=== PATIENT | female | born 1945 | race Hispanic/Latino ===

== ENCOUNTER 2024-09-14 06:26 | Observation (INO) | payer OTHER ==
[2024-09-12 10:53] VITALS: BP 154/78; PULSE 75; RESP 17; TEMP 97.3
[2024-09-12 11:11] LABS: CREATININE 0.9 mg/dL (0.5-1.0); GLOMERULAR FILTR. RATE CALC 65 mL/min (>90); GLUCOSE,RANDOM 116 mg/dL (70-105); SODIUM SERUM 140 mmol/L (136-145); UREA NITROGEN, BLOOD 14 mg/dL (7-18)
[2024-09-12 11:13] LABS: IMMATURE GRANULOCYTE ABSOLUTE 0.02 K/uL (0-1); NUCLEATED RED BLOOD CELLS 0.0 % (0.0-0.19); PLATELET COUNT (AUTO) 201 K/uL (130-400); RED BLOOD CELL COUNT(AUTO) 4.76 MIL/uL (4.00-5.50); RED CELL DISTRIBUTION WIDTH 16.5 % (11.0-15.5); WHITE BLOOD COUNT (AUTO) 5.2 K/uL (4.8-10.8)
[2024-09-12 11:23] LABS: INR 1.06 (0.85-1.15)
[2024-09-14] VITALS (28 sets, daily range): BP systolic 115–140; BP diastolic 52–79; PULSE 68–90; RESP 14–19; TEMP 97.3–97.6; O2SAT 95–97
[~2024-09-14] VITALS: Ht 154.9 cm; Wt 77.2 kg
[~2024-09-14 06:26] MED LIST: ASPI-1197 PO; CARV3.12 PO; ROSU5TAB51 PO; SACU1TAB4 PO
[2024-09-14] MEDS ORDERED: LIDOCAINE HCL MPF 1% 5ML VIAL ONE (07:32)
[2024-09-14] MEDS ORDERED: GLYCOPYRROLATE 0.2 MG/ML 5 ML VIAL ONE (07:40)
[2024-09-14] MEDS ORDERED: MIDAZOLAM HCL 1 MG/ML 2ML VIAL ONE (07:40)
[2024-09-14] MEDS ORDERED: NEOSTIGMINE METHYLSULFATE 1MG/ML IV ONE (07:40)
[2024-09-14] MEDS: LACTATED RINGERS 1000ML 1,000 ML IV ONE (07:55)
[2024-09-14] MEDS: TRANEXAMIC ACID 1000MG/10ML ONE (09:10)
[2024-09-14] MEDS: TRANEXAMIC ACID 1000MG/10ML IV ONE ×2 (10:47)
[2024-09-14] MEDS ORDERED: HYDROcodone/APAP 5/325 1 TAB TABLET PO PRN (11:00)
[2024-09-14] MEDS ORDERED: CALCIUM CARB 500MG PO PRN (11:00)
[2024-09-14] MEDS ORDERED: CYCLOBENZAPRINE HCL 10 MG TABLET PO PRN (11:00)
[2024-09-14] MEDS ORDERED: PoTASSium chl 10% ELIXIR 20MEQ 20 MEQ/15 ML UDCUP PO PRN (11:00)
[2024-09-14] MEDS ORDERED: PoTASSium chloRIDE 20MEQ ER 20 MEQ ERTAB PO PRN (11:00)
[2024-09-14] MEDS ORDERED: FERROUS FUMARATE 324 MG TABLET PO PRN (11:00)
--- NOTE | 2024-09-14 11:06 | OP ---
Operative Note: DATE OF PROCEDURE: 09/14/24 PREOPERATIVE DIAGNOSIS: Right knee osteoarthritis. POSTOPERATIVE DIAGNOSIS: Right knee osteoarthritis. PROCEDURE PERFORMED: Right knee total knee arthroplasty. SURGEON: Beverley Hair MD FISHER CRAB: Beatriz Daniel and Nehemiah Hale. ANESTHESIA: General with adductor canal block. ANESTHESIA: JIM Mauro. ESTIMATED BLOOD LOSS: 50cc. COMPLICATIONS: None. DRAINS: None. SPECIMENS REMOVED: resected bone. Not sent to pathology. IMPLANTS: Lob[employer]hew Journey II BCS size 4 Oxinium femur, size 3 tibial base plate, 32 mm patella, 12 mm polyethylene STATEMENT OF MEDICAL NECESSITY: The patient is a 79-year-old female who suffers from right knee osteoarthritis failing conservative management. After discussion of the risks, benefits, and alternatives with the patient, they voluntarily agreed to undergo the aforementioned procedure. DESCRIPTION OF PROCEDURE: Patient was properly identified in the preoperative holding area. Surgical site marking was verified and surgery consent reviewed. The patient was then taken to the operating room and placed in supine position on the OR table. After induction of general anesthesia, preoperative antibiotics were given, all bony prominences were well-padded, and a well padded tourniquet was applied but not inflated at this time. The right lower extremity was then prepped and draped in usual sterile fashion. Surgical time out was done verifying correct surgery, side, site, and location to be performed. We then began the procedure by exsanguinating the limb using an Esmarch and inflating the tourniquet to 350 mmHg. At this point, we made an anterior midline incision using a 10 blade, coming down sharply the level of the fascia. Skin flaps were elevated medially and laterally. We then obtained a clean 10 blade and performed a standard medial parapatellar arthrotomy. We excised the infrapatellar fat pad. We performed our soft tissue releases off of the tibia. We transected the ACL and removed the anterior portion of the medial & lateral meniscus. We then brought the knee into hyperflexion with the patella everted. We used our entry reamer to enter the femoral canal. We then placed our intramedullary cutting guide for our distal femoral cutting block. We then performed our distal femoral osteotomy ensuring appropriate rotation and removed the bony wafer. We then removed these pins and block and then used jig 2 to size the distal femur with the after mentioned size found. We then placed our 5-in-1 cutting block in 3 degrees of external rotation and took our 5 cuts ensuring to protect the patellar tendon and the collateral ligaments. We then removed the cutting block and our bony fragments using a curved osteotome. We then placed our PCL retractor subluxating the tibia anteriorly. Using an extra medullary tibial cutting guide, we hung the block for our proximal tibial cut taking 2 mm off the more diseased portion. Prior to pinning this block in place, we ensured appropriate varus/valgus alignment and posterior slope similar to the paimiut slope of the patient's knee. We then performed our proximal tibial osteotomy and removed the bony wafer using Bovie electrocautery to release any remaining soft tissue attachments. We then used our tibial sizing paddle and checked once more for varus & valgus alignment and found this to be appropriate. At this point, we pinned our tibial paddle in place. We then removed the PCL retractor and subluxated the tibia posteriorly while we placed our femoral trial component. We then finished preparing the notch with the reamer and box chisel. The notch portion of the trial femoral component was then placed. A posterior stabilized polyethylene, size 9 trial was placed. This was immediately increased up to a size 11 polyethylene due to laxity with varus and valgus stressing. The knee was then taken through range of motion and found to have stable full range of motion. We then placed a bump under the ankle and everted the patella to perform our freehand cut of the undersurface the patella. We then sized our patella and reamed to the lug holes for this. We placed our trial patellar component and begin to take the knee through range of motion. The patella had mild lateral tracking which improved after a small lateral release. At this point we began removing our trial components and punched the tibial keel prior to removing our tibial trial component. Final components were opened and cement was mixed on the back table while we injected local cocktail in the posterior capsule. We then thoroughly irrigated out the bone and dried the bony surfaces. We cemented our tibial component in place ensuring to remove excess cement and placed our trial polyethylene. We then cemented our femoral component in place once again taking time to ensure excess cement was removed leg was brought into full extension to help squeeze the excess cement from around the femoral component. We then brought the knee back in a flexion to remove this portion of the cement at this point we placed the ankle in a bump thoroughly irrigated off the patellar component and cemented our patellar component in standard fashion again removing excess cement. While we waited for the cement to cure, we thoroughly irrigated out the wound with normal saline. Once our cement had cured, we took the knee through a range of motion and found full and stable range of motion. We then elected to use the size 12 polyethylene and removed our trial polyethylene. We impacted our final polyethylene component in place in standard fashion and took the knee through a range of motion check once more. This was satisfactory so we began to repair the arthrotomy using #1 Vicryl in interrupted [id number] fashion. Subcutaneous tissue was repaired using 2-0 Vicryl. Running subcuticular 3-0 Monocryl stitch with Dermabond placed over this for the skin. We then applied a foam barrier dressing and a pressure dressing consisting of 4 x 4's fluffs and an Carlos Alberto wrap. The tourniquet was then deflated. Patient was awakened from anesthesia, and they were taken to the recovery room in stable condition. BEVERLEY HAIR MD Sep 14, 2024 11:06
--- NOTE | 2024-09-14 11:08 | DS ---
Discharge Summary Hospital Course Summary: The patient was admitted to the hospital postoperatively on 09/14/2024 after undergoing right total knee arthroplasty. They did well with routine postoperative pain control. They worked well with physical therapy. They developed some acute blood loss anemia but remained asymptomatic. The hospital course was otherwise uncomplicated. They were subsequently able to be discharged on postoperative day [] once discharge arrangements were made with [facility] facility. Client Relationship Executive(s): None Procedure(s): Right total knee arthroplasty, 09/14/2024 Assessment/Plan: ASSESSMENT: Status post right total knee arthroplasty Acute blood loss anemia PLAN: See discharge instructions Home Medications: Reported Medications Aspirin (Aspirin) 81 Mg Tab.chew, 81 MG PO AM, TAB.CHEW 09/12/24 Carvedilol (Carvedilol) 3.125 Mg Tablet, 3.125 MG PO BID, TAB 09/12/24 Sacubitril/Valsartan (Entresto 97 mg-103 mg Tablet) 97 Mg-103 Mg Tablet, 1 EACH PO BID, TAB 09/12/24 Rosuvastatin Calcium (Rosuvastatin Calcium) 5 Mg Tablet, 5 MG PO AM, TAB 09/12/24 VANDANA LUCERO MD Sep 14, 2024 11:08
--- NOTE | 2024-09-14 12:20 | HMCIMG ---
EXAM: CR right Knee, 2 View. CLINICAL HISTORY: S/P RT TKA SURGERY COMPARISON: None provided. FINDINGS: Cemented right total knee arthroplasty is in near anatomic alignment without evidence of a periprosthetic fracture. Knee joint effusion. Postsurgical changes about the right knee joint. IMPRESSION: 1. Cemented right total knee arthroplasty in near anatomic alignment without acute findings. Knee joint effusion noted. /[place]
[2024-09-14] MEDS: 0.9%NACL 1000ML 1,000 ML IV SCH (12:55)
--- NOTE | 2024-09-14 12:55 | NUR ---
REPORT RECEIVED FROM CHERYL MATA. PATIENT ARRIVED TO THE UNIT. NO SIGNS OF DISTRESS NOTED. POST OP VITALS INITIATED. SCDS PLACED ON THE PATIENT. ICE BAG APPLIED TO THE AFFECTED LEG. NO COMPLAINTS OF PAIN AT THIS TIME. WILL MONITOR PATIENT.
--- NOTE | 2024-09-14 15:00 | NUR ---
PATIENT'S DAUGHTER AT BEDSIDE. PATIENTS DAUGHTER STATED THAT THE PATIENT CANNOT HAVE NSAIDS DUE TO TAKING ENTRESTO. NO ALLERGY. PATIENT HAS SCHEDULED TORADOL. WILL NOTIFY PHYSICAN FOR FURTHER RECOMMENDATIONS.
--- NOTE | 2024-09-14 16:30 | NUR ---
Ortho Coordinator: Teaching regarding DVT and pneumonia prevention, pain expectation and pain management. Patient in bed. Daughter at bedside. B SCD sleeves in place and functioning. Incentive spirometer at bedside. Patient return demonstrated proper use of incentive spirometer and verbalized frequency of use. Pain strategy reviewed, medications reviewed. Patient instructed to perform pain self assessments and reminded pain medication must be requested. Patient return demonstrated proper foot flexion and extension exercises, rationale for performing reviewed. Set expectation for patient to shower tomorrow, rationale provided. No additional questions or concerns at this time.
[2024-09-14] MEDS: SACUBITRIL/VALSARTAN 1 EACH TABLET PO SCH (21:27)
[2024-09-14] MEDS: HYDROcodone/APAP 5/325 1 TAB TABLET PO PRN (21:29)
[2024-09-15] VITALS: BP 126/58; PULSE 75; RESP 20; TEMP 98.3
[2024-09-15 04:00] VITALS: BP 128/64; PULSE 78; RESP 18; TEMP 98
[2024-09-15 04:48] LABS: NUCLEATED RED BLOOD CELLS 0.0 % (0.0-0.19); PLATELET COUNT (AUTO) 150.0 K/uL (130-400); RED BLOOD CELL COUNT(AUTO) 3.8 MIL/uL (4.00-5.50); RED CELL DISTRIBUTION WIDTH 16.6 % (11.0-15.5); WHITE BLOOD COUNT (AUTO) 8.1 K/uL (4.8-10.8)
[2024-09-15 04:57] LABS: CREATININE 0.8 mg/dL (0.5-1.0); GLOMERULAR FILTR. RATE CALC 75.0 mL/min (>90); GLUCOSE,RANDOM 141.0 mg/dL (70-105); SODIUM SERUM 139.0 mmol/L (136-145); UREA NITROGEN, BLOOD 11.0 mg/dL (7-18)
[2024-09-15 08:00] VITALS: BP 87/46; PULSE 86; RESP 18; TEMP 98
--- NOTE | 2024-09-15 08:19 | PN ---
Ortho postop day one. This morning the patient is awake alert and oriented. She is seated out of the bed resting comfortably alternating extending and flexing of the extremity on a footstool. Daughter at bedside. There is ice present. The Carlos Alberto bandage has been removed. The dressing is intact. Gastrocnemius a soft nontender. Negative Homans. Vital signs have remained stable. Afebrile. Voiding on her own without difficulty and already passing gas but yet to have BM. Laboratory results reviewed. Noted to have a drop in hemoglobin and hematocrit as expected after TKA. We will continue to observe and treat per protocol. Reinforced incentive spirometry. SCD sleeves are present in the room but not currently on. Yesterday she ambulated about 20 ft with physical therapy. She is pending further physical therapy this morning. The anticipated discharge goal [facility] Assessment: Status post right TKA. Acute postoperative blood loss anemia Plan: Continue with Dr. Hair's TKA protocol and discharge planning. Acute postoperative blood loss anemia addressed with the protocol as necessary Vitals/Labs Vital Signs Date Time Temp Pulse Resp B/P (MAP) Pulse Ox O2 Delivery O2 Flow Rate FiO2 09/15/24 04:00 98.1 78 18 128/64 96 Room Air 09/14/24 21:30 0 21 Laboratory Tests 09/15/24 04:35 Medications Current Medications Cefazolin Sodium 2 gm STK-MED ONCE .ROUTE Last administered on 09/14/24 09:16; Start 09/14/24 at 07:17; Stop 09/14/24 at 07:17; Status DC Lactated Ringer's 1,000 ml @ As Directed STK-MED ONCE IV Last administered on 09/14/24at 07:55; Start 09/14/24 at 07:17; Stop 09/14/24 at 07:17; Status DC Ketorolac Tromethamine 30 mg STK-MED ONCE .ROUTE Last administered on 09/14/24at 10:12; Start 09/14/24 at 07:26; Stop 09/14/24 at 07:27; Status DC Ropivacaine 150 mg STK-MED ONCE .ROUTE Last administered on 09/14/24at 10:12; Start 09/14/24 at 07:27; Stop 09/14/24 at 07:27; Status DC Tranexamic Acid 1,000 mg STK-MED ONCE .ROUTE Last administered on 09/14/24at 09:10; Start 09/14/24 at 07:29; Stop 09/14/24 at 07:29; Status DC Lidocaine HCl 5 ml STK-MED ONCE .ROUTE; Start 09/14/24 at 07:32; Stop 09/14/24 at 07:32; Status DC Ondansetron HCl 4 mg STK-MED ONCE .ROUTE; Start 09/14/24 at 07:32; Stop 09/14/24 at 07:32; Status DC Propofol 200 mg STK-MED ONCE IV; Start 09/14/24 at 07:39; Stop 09/14/24 at 07:40; Status DC Dexamethasone Sodium Phosphate 10 mg STK-MED ONCE .ROUTE; Start 09/14/24 at 07:39; Stop 09/14/24 at 07:40; Status DC Glycopyrrolate 1 mg STK-MED ONCE .ROUTE; Start 09/14/24 at 07:40; Stop 09/14/24 at 07:40; Status DC Midazolam HCl 2 mg STK-MED ONCE .ROUTE; Start 09/14/24 at 07:40; Stop 09/14/24 at 07:40; Status DC Neostigmine Methylsulfate 10 mg STK-MED ONCE IV; Start 09/14/24 at 07:40; Stop 09/14/24 at 07:40; Status DC Rocuronium Maupin 50 mg STK-MED ONCE .ROUTE; Start 09/14/24 at 07:40; Stop 09/14/24 at 07:40; Status DC Fentanyl Citrate 100 mcg STK-MED ONCE .ROUTE; Start 09/14/24 at 07:40; Stop 09/14/24 at 07:40; Status DC Ondansetron HCl 4 mg STK-MED ONCE .ROUTE; Start 09/14/24 at 07:40; Stop 09/14/24 at 07:41; Status DC Ropivacaine 150 mg STK-MED ONCE .ROUTE; Start 09/14/24 at 09:07; Stop 09/14/24 at 09:07; Status DC Ephedrine Sulfate 50 mg STK-MED ONCE .ROUTE; Start 09/14/24 at 09:34; Stop 09/14/24 at 09:34; Status DC Tranexamic Acid 1,000 mg STK-MED ONCE IV; Start 09/14/24 at 00:00; Stop 09/14/24 at 00:01; Status Cancel Tranexamic Acid 1,000 mg STK-MED ONCE IV Last administered on 09/14/24at 10:47; Start 09/14/24 at 10:47; Stop 09/14/24 at 10:55; Status DC Fentanyl Citrate 100 mcg STK-MED ONCE .ROUTE; Start 09/14/24 at 10:57; Stop 09/14/24 at 10:58; Status DC Sodium Chloride 1,000 ml @ 100 mls/hr Q10H IV Last administered on 09/14/24at 23:29; Start 09/14/24 at 11:00; Stop 09/15/24 at 10:59 Polyethylene Glycol 17 gm DAILY PO; Start 09/15/24 at 09:00; Stop 10/15/24 at 08:59 Bisacodyl 10 mg DAILY PRN RC; Start 09/17/24 at 11:00; Stop 10/17/24 at 10:59 Ferrous Fumarate 324 mg DAILY PRN PO; Start 09/14/24 at 11:00; Stop 10/14/24 at 10:59 Ondansetron HCl 4 mg Q6H PRN IVP; Start 09/14/24 at 11:00; Stop 10/14/24 at 10:59 Calcium Carbonate 500 mg Q12H PRN PO; Start 09/14/24 at 11:00; Stop 10/14/24 at 10:59 Cefazolin Sodium 2 gm Q8H IVP Last administered on 09/14/24at 23:28; Start 09/14/24 at 16:00; Stop 09/15/24 at 00:01; Status DC Cyclobenzaprine HCl 5 mg Q8H PRN PO; Start 09/14/24 at 11:00; Stop 10/14/24 at 10:59 Gabapentin 100 mg TID PO Last administered on 09/14/24at 21:29; Start 09/14/24 at 14:00; Stop 10/14/24 at 13:59 Aspirin 325 mg DAILY PO; Start 09/15/24 at 09:00; Stop 10/15/24 at 08:59 Ketorolac Tromethamine 15 mg Q8H IV Last administered on 09/14/24at 12:11; Start 09/14/24 at 11:00; Stop 09/14/24 at 19:22; Status DC Docusate Sodium 100 mg BID PO Last administered on 09/14/24at 21:27; Start 09/14/24 at 21:00; Stop 10/14/24 at 20:59 Potassium Chloride 100 ml @ 100 mls/hr AD PRN IV; Start 09/14/24 at 11:00; Stop 10/14/24 at 10:59 Potassium Chloride 20 meq AD PRN PO; Start 09/14/24 at 11:00; Stop 10/14/24 at 10:59 Potassium Chloride 20 meq AD PRN PO; Start 09/14/24 at 11:00; Stop 10/14/24 at 10:59 Tramadol HCl 50 mg Q6H PRN PO; Start 09/14/24 at 11:00; Stop 09/19/24 at 10:59 Acetaminophen/ Hydrocodone Bitart Q4H PRN PO; Start 09/14/24 at 11:00; Stop 09/14/24 at 11:09; Status DC Carvedilol 3.125 mg BID PO Last administered on 09/14/24at 21:28; Start 09/14/24 at 21:00; Stop 10/14/24 at 20:59 Sacubitril/ Valsartan 1 each BID PO Last administered on 09/14/24at 21:27; Start 09/14/24 at 21:00; Stop 10/14/24 at 20:59 Atorvastatin Calcium 10 mg HS PO; Start 09/14/24 at 21:00; Stop 10/14/24 at 20:59 Acetaminophen/ Hydrocodone Bitart 1 tab Q4H PRN PO Last administered on 09/15/24at 06:52; Start 09/14/24 at 11:30; Stop 09/19/24 at 11:29 Acetaminophen/ Hydrocodone Bitart 2 tab Q4H PRN PO; Start 09/14/24 at 11:30; Stop 09/19/24 at 11:29 Ketorolac Tromethamine 15 mg STK-MED ONCE .ROUTE; Start 09/14/24 at 12:04; Stop 09/14/24 at 12:04; Status DC ANGELICA COOK NP Sep 15, 2024 08:19
[2024-09-15] MEDS: ASPIRIN 325MG EC TAB PO SCH (09:20)
--- NOTE | 2024-09-15 11:16 | NUR ---
[facility] CM MET WITH PT AND KRAIG THIS MORNING, INITIAL ASSESSMENT DONE. PATIENT IS INDEPENDENT PRIOR TO SURGERY, LIVES AT HOME WITH , DAUGHTER LIVES W/PT AT HOME ALSO. PATIENT HAS A WHEELCHAIR, ROLLATOR WALKER, SHOWER CHAIR, CANE, BPM. DENIES ANY OTHER EQUIPMENT/SERVICES. FEELS SAFE TO GO BACK HOME, PT HAS NOT DRIVEN IN 4 MON[address]S BUT [address]ED TO DRIVE, SPOUSE AND DAUGHTER ABLE TO ASSIST WITH TRANSPORTATION AND NEEDS NECESSARY. DISCUSSED MD RECOMMENDATIONS FOR SHORT TERM REHAB AT SNF, GIVEN IN NETWORK FACILITIES, PT AGREEABLE, CONSENT SIGNED [facility]. [facility] ONCE APPROVED. CM TO CONTINUE TO FOLLOW UP. Addendum: 09/15/24 at 1119 by VIKAS TATE LVN Amended: Links added.
[2024-09-15 12:00] VITALS: BP 122/67; PULSE 82; RESP 19; TEMP 99.1
[2024-09-15] MEDS: HYDROcodone/APAP 5/325 1 TAB TABLET PO PRN (12:49)
--- NOTE | 2024-09-15 15:45 | NUR ---
Ortho Coordinator: Reinforced teaching. Patient up to chair, family at bedside. Patient reports just finishing with physical therapy. Reports knee feeling sore, reassured was normal and encouraged her utilize pain management strategy agreed upon previously. Patient verbalized understanding. Patient's last bowel movement was 09/12/2024, reports passing gas, no bowel movement. Patient has not showered today, would like to shower in the morning. Set expectation to shower today, rationale provided. Patient and family verbalized understanding. Reviewed next steps with discharging to rehab. Discussed pain management strategy and the need to continue premedicating prior to physical therapy, to continue with incentive spirometer, continue with foot flexion and extension exercises and to stay hydrated. Discussed length of stay. Patient and family verbalized understanding. No additional questions or concerns at this time.
[2024-09-15 16:00] VITALS: BP 146/68; PULSE 84; RESP 19; TEMP 98.6
[2024-09-15] MEDS: LACTULOSE 20 GM/30 ML UDCUP PO ONE (17:26)
[2024-09-15 20:00] VITALS: BP 134/66; PULSE 84; RESP 18; TEMP 99.3; O2SAT 98
[2024-09-16] VITALS: BP 131/64; PULSE 82; RESP 18; TEMP 98.4
[2024-09-16 04:00] VITALS: BP 84/46; PULSE 81; RESP 20; TEMP 98.5
[2024-09-16 08:00] VITALS: BP 96/51; PULSE 85; RESP 18; TEMP 98.5
[2024-09-16 09:02] VITALS: O2SAT 100
[2024-09-16 12:00] VITALS: BP 118/58; PULSE 74; RESP 18; TEMP 98.2
[2024-09-16] MEDS ORDERED: HYDR-4060 PO (13:28)
[2024-09-16] MEDS ORDERED: ASPI-891 PO (13:28)
[2024-09-16] MEDS ORDERED: DOCU-116 PO (13:28)
[2024-09-16] MEDS ORDERED: GABA100C PO (13:28)
--- NOTE | 2024-09-16 16:15 | NUR ---
PATIENT REPORT REPORT GIVEN TO [facility] AT [facility]. ALL QUESTIONS ANSWERED.
--- NOTE | 2024-09-16 17:00 | NUR ---
PATIENT DISCHARGE PATIENT DISCHARGED. PERIPHERAL IV DISCONTINUED CATHETER INTACT. DISCHARGE INSTRUCTIONS GIVEN. DRESSING CLEAN DRY AND INTACT. PAIN LEVEL 02/25. DISCHARGE EDUCATION PROVIDED. PATIENT AWARE TO F/U WITH DR. LUCERO 10/06. PRESCRIPTIONS FAXED TO [facility]. FACILITY TRANSPORT ON UNIT TO TRANSFER UNIT.
== END 2024-09-16 17:00 ==
LOC: DAH 06:26 → DAHIP 06:27 → 4AH 12:55
PROVIDERS: ADMIT Student in an Organized Health Care Education/Training Program; ATTEND Student in an Organized Health Care Education/Training Program
DX: M17.11 Unilateral primary osteoarthritis, right knee (principal); G89.18 Other acute postprocedural pain; D62 Acute posthemorrhagic anemia; I11.0 Hypertensive heart disease with heart failure; I50.9 Heart failure, unspecified; E78.5 Hyperlipidemia, unspecified; M21.061 Valgus deformity, not elsewhere classified, right knee; Z79.899 Other long term (current) drug therapy
CPT/HCPCS: 82040; 80048 ×2; 85025; 85610; 85730; 84134; 86140; 36415 ×2; 87641; 64447; 96365; 96366 ×2; 27447; 73560; 97161; 97116 ×5; 97530 ×7; 85027; G0378 ×54; A4223 ×2; A4663; J7120 ×2; J3010 ×2; J3490 ×6; J1100; J2250; J2704; J2405 ×2; J1885 ×2; J2710; J2795 ×2; J0690 ×3; C1713 ×2; C1776 ×2; A4649 ×2; A4930 ×2; A6255; A4215; A4222; A4221; A4216

== ENCOUNTER 2024-10-10 09:30 | Observation (INO) | payer OTHER ==
--- NOTE | 2024-10-06 12:06 | EKG ---
[facility] Test Date: 2024-10-06 Test Time: 11:57:07 Pat Name: SADAF CINTRON Department: [facility] Room: Gender: F Field Service Coordinator: [id number] : 1945 Requested By: VANDANA LUCERO Order Number: [id number] Reading MD: Fabien Cruz Measurements Intervals Riva Rate: 85 P: 4 SC: 117 QRS: 61 QRSD: 89 T: 61 QT: 361 QTc: 429 Interpretive Statements Sinus rhythm No previous ECG available for comparison Electronically Signed On 10-07-2024 13:21:07 CDT by Fabien Cruz Please click the below link to view image of tracing.
[2024-10-06 12:12] LABS: IMMATURE GRANULOCYTE ABSOLUTE 0.02 K/uL (0-1); NUCLEATED RED BLOOD CELLS 0.0 % (0.0-0.19); PLATELET COUNT (AUTO) 324 K/uL (130-400); RED BLOOD CELL COUNT(AUTO) 4.02 MIL/uL (4.00-5.50); RED CELL DISTRIBUTION WIDTH 17.6 % (11.0-15.5); WHITE BLOOD COUNT (AUTO) 4.4 K/uL (4.8-10.8)
[2024-10-06 12:25] LABS: INR 1.07 (0.85-1.15)
[2024-10-06 12:35] LABS: CREATININE 0.9 mg/dL (0.5-1.0); GLOMERULAR FILTR. RATE CALC 65.0 mL/min (>90); GLUCOSE,RANDOM 130.0 mg/dL (70-105); SODIUM SERUM 141.0 mmol/L (136-145); UREA NITROGEN, BLOOD 15.0 mg/dL (7-18)
[2024-10-06 12:44] VITALS: BP 130/64; PULSE 88; RESP 14; TEMP 97.9
[~2024-10-10] VITALS: Ht 160 cm; Wt 76.0 kg
[2024-10-10] VITALS (26 sets, daily range): BP systolic 127–178; BP diastolic 59–89; PULSE 70–92; RESP 15–23; TEMP 97.3–97.9; O2SAT 97–98
[~2024-10-10 09:30] MED LIST changes: +ACET-2123 PO; -ASPI-1197 PO; +DOCU100C33 PO; +GABA-529 PO; +SACU1TAB PO; -SACU1TAB4 PO
[2024-10-10] MEDS ORDERED: LIDOCAINE PF 100MG/5ML (2%) SYRINGE 5ML ONE (13:20)
[2024-10-10] MEDS ORDERED: FAMOTIDINE 20MG VIAL IV ONE (14:02)
--- NOTE | 2024-10-10 15:59 | OP ---
Operative Note: DATE OF PROCEDURE: 10/10/24 SURGEON: VANDANA LUCERO MD ASSEMBLER MUSICAL EQUIPMENT: Beatriz Daniel ANESTHESIA: General and adductor canal block ANESTHESIOLOGIST/ORACLE DISTRIBUTION CONSULTANT: Fabien Mauro PREOPERATIVE DIAGNOSIS: Right quadriceps tendon avulsion fracture POSTOPERATIVE DIAGNOSIS: Right quadriceps tendon avulsion fracture PROCEDURE: Right quadriceps tendon repair ESTIMATED BLOOD LOSS: 5 cc INDICATIONS: 79-year-old female approximately 3-4 weeks status post right total knee arthroplasty. Patient sustained a near fall during her acute postoperative course and develop severe right knee pain with inability to perform extension. X-rays were obtained at the [facility] showing a proximal pole of patella avulsion fracture. She followed up in our clinic where she was unable to perform active extension. After discussion of the risks, benefits, and alternatives, she voluntarily agreed to undergo the aforementioned procedure. DESCRIPTION OF PROCEDURE: Patient was properly identified in the preoperative holding area. Surgical site marking was verified and surgery consent reviewed. The patient was then taken to the operating room and placed in supine position on the OR table. After induction of general anesthesia, preoperative antibiotics were given, all bony prominences were well-padded, and a well padded tourniquet was applied but not inflated at this time. The right lower extremity was then prepped and draped in usual sterile fashion. Surgical timeout was done verifying correct surgery, side, site, and location to be performed. We then began the procedure by using an Esmarch for exsanguination and inflating her tourniquet 350 mmHg. We then reopened the anterior midline incision extending up slightly proximally using a 10 blade. Hemostasis was then achieved using Bovie electrocautery. We then came sharply through the swollen bursal tissue and the peritenon. We identified the quadriceps tendon and the location of the patella fracture. Hemarthrosis was evacuated using suction. The fracture fragments were distracted and debrided of interposed soft tissue and hematoma using curettes and rongeur. We noted the quadriceps insertion remained intact along the medial 1/3 of the proximal patella. Since these bony fragments were very small, we elected to go ahead and treat this as a quadriceps tendon injury. Using #5 Ethibond, we ran in Krakw sutures in the avulsed portion of the quadriceps tendon. We placed drill holes longitudinally in the patella under fluoroscopic guidance and passed 1 of each strand of our sutures through each of these tunnels using a [employer] [place] suture passer. We tied the Ethibond sutures together over the top of the patella. We then obtained final AP and lateral fluoroscopic films. At this point we thoroughly irrigated out the wound with normal saline. The retinaculum was repaired using #5 Ethibond, as well as the periosteum at the fracture site that appeared avulsed. #1 Vicryl was used to repair the peritenon. 2-0 Vicryl in the subcutaneous tiss ues and 3-0 Monocryl with Dermabond for the skin. Sterile soft dressing was then applied and our tourniquet was deflated. Patient was placed into a knee immobilizer. She was then awakened from anesthesia and taken to recovery room in stable condition. VANDANA LUCERO MD Oct 10, 2024 15:59
[2024-10-10] MEDS ORDERED: PoTASSium chl 10% ELIXIR 20MEQ 20 MEQ/15 ML UDCUP PO PRN (16:00)
[2024-10-10] MEDS ORDERED: PoTASSium chloRIDE 20MEQ ER 20 MEQ ERTAB PO PRN (16:00)
[2024-10-10] MEDS: 0.9%NACL 1000ML 1,000 ML IV SCH (16:00)
[2024-10-10] MEDS ORDERED: FERROUS FUMARATE 324 MG TABLET PO PRN (16:00)
[2024-10-10] MEDS ORDERED: CALCIUM CARB 500MG PO PRN (16:00)
--- NOTE | 2024-10-10 16:20 | NUR ---
arrived from recovery vitals stable, patient sleeping, on 3L oxygen via nasal cannula, chest rising and falling, family at bedside, pulses strong to RLE
--- NOTE | 2024-10-10 17:00 | NUR ---
patient alert and oriented x4, now rating pain 6/10, per surgery team to administer scheduled toradol first. Administered scheduled toradol, advised patient pain will be reassessed in one hour if she needed additional pain medication. family stated "she needs narcotics, when is she scheduled to have something stronger?" at this time no orders for severe pain were active for prn orders. attempted to contact provider to obtain orders for pain management
--- NOTE | 2024-10-10 17:05 | NUR ---
contacted RT for incentive spirometer, patient awake and alert
--- NOTE | 2024-10-10 17:46 | NUR ---
Attempted PT eval. Patient is screaming in pain. Pain med orders pending per nurse. Knee immobilizer is present and fits well, Negative homans, pt able to move her toes and has intact sensation. PT provides ice packs and extensive family education. PT eval to be completed in AM. Addendum: 10/10/24 at 1748 by VANDANA MANN, PT PT Amended: Links added.
[2024-10-10] MEDS: CYCLOBENZAPRINE HCL 10 MG TABLET PO PRN (17:48)
[2024-10-10] MEDS: HYDROcodone/APAP 5/325 1 TAB TABLET PO PRN (17:52)
[2024-10-10] MEDS: LACTATED RINGERS 1000ML 1,000 ML IV ONE (19:12)
[2024-10-10] MEDS: SUGAMMADEX SODIUM 200 MG/2 ML VIAL IV ONE (19:12)
--- NOTE | 2024-10-10 19:15 | NUR ---
PLAN OF CARE DISCUSSED WITH PATIENT AND PATIENTS DAUGHTERS. REVIEWED ALL PAIN MANAGEMENT MEDICATIONS AND TIME FRAMES PATIENT CAN TAKE. PATIENT MEDICATED AT THIS TIME WITH ULTRAM PRN DOSE. PATIENT AND DAUGTHERS VOICED UNDERSTANDING REGARDING POC. ALL QUESTIONS ANSWERED. NO CONCERNS AT THIS TIME. CALL PRECIADO AT REACH. SAFETY PRECAUTIONS IN PLACE. IMMOBILIZER IN PLACE AND ICE PACKS. PATIENT TOLERATING WELL.
--- NOTE | 2024-10-10 20:45 | NUR ---
WAS APPROACHED BY PATIENTS DAUGHTER WHO WAS QUESTIONING WHY THE PATIENT HAD NOT RECEIVED PAIN MANAGEMENT .PER DAUGHTER THE PATIENTS PAIN LEVEL WAS AT A 10 IN A 0-10 PAIN SCALE. PATIENTS DAUGHTER WAS UNDER THE IMPRESSION THAT THE PATIENT HAD NOT RECEIVED MEDICATION SINCE 1700. AT THIS TIME INFORMED THE DAUGHTER THAT THE PATIENT HAD RECEIVED ULTRAM AT 1911. PATIENT WAS ASSESSED. PER PATIENT HER PAIN LEVEL IS A 4 NOT 10, REQUESTED TO GET UP TO RESTROOM. PATIENT WAS ASSISTED TO RESTROOM AT THIS TIME . ASSISTIVE DEVICE IN PLACE , USED WALKER AND AMBULATED TO RESTROOM AND BACK WITH NO COMPLAINTS OR COMPLICATIONS. PATIENT PLACED ON ROOM AIR. SPO2 97% . PER PATIENT HER PAIN IS DECREASING. PATIENTS DAUGHTER ONCE AGAIN UPDATED ON SCHEDULED AND PRN PAIN MANAGEMENT. BOTH VOICED UNDERSTANDING , NO CONCERNS AT THIS TIME.
[2024-10-10] MEDS: SACUBITRIL/VALSARTAN 1 EACH TABLET PO SCH (20:56)
[2024-10-11 04:00] VITALS: BP 112/63; PULSE 74; RESP 17; TEMP 97.3
[2024-10-11 06:00] LABS: NUCLEATED RED BLOOD CELLS 0.0 % (0.0-0.19); PLATELET COUNT (AUTO) 225.0 K/uL (130-400); RED BLOOD CELL COUNT(AUTO) 3.77 MIL/uL (4.00-5.50); RED CELL DISTRIBUTION WIDTH 17.0 % (11.0-15.5); WHITE BLOOD COUNT (AUTO) 5.5 K/uL (4.8-10.8)
[2024-10-11 06:27] LABS: CREATININE 0.9 mg/dL (0.5-1.0); GLOMERULAR FILTR. RATE CALC 65.0 mL/min (>90); GLUCOSE,RANDOM 125.0 mg/dL (70-105); SODIUM SERUM 136.0 mmol/L (136-145); UREA NITROGEN, BLOOD 16.0 mg/dL (7-18)
--- NOTE | 2024-10-11 06:43 | NUR ---
PATIENT WAS ASSISTED UP TO CHAIR, USED WALKER, KNEE IMMOBILIZER IN PLACE. DENIES PAIN, DAUGHTER AT BEDSIDE.
[2024-10-11 08:00] VITALS: BP 116/57; PULSE 75; RESP 18; TEMP 98; O2SAT 96
--- NOTE | 2024-10-11 08:10 | PN ---
Ortho postop day one. This morning the patient is awake alert and oriented. Postoperative delirium has subsided. The is at the bedside. She is reporting much better pain control and states that she is not feeling too much pain at this time. Vital signs have remained stable. Afebrile. Laboratory results reviewed. Noted to have a drop in hemoglobin and hematocrit as expected. Patient is currently asymptomatic we will continue to observe and address per protocol as necessary. Operative findings discussed with the patient. Voiding on her own and passing gas. Reinforced incentive spirometry. Patient is currently seated immobilizer is in place the Carlos Alberto bandage has been removed and the anterior dressing is intact. The gastrocnemius a soft nontender. Negative Homans. Instructed patient that she is to wear the immobilizer especially when ambulating can remove while resting in bed and for physical therapy. Patient we would like to go home with a home health/PT. Assessment: Status post right tendon rupture repair. Acute postoperative blood loss anemia. Plan: Continue Dr. Hair protocol and discharge planning. Acute postoperative blood loss anemia addressed with the protocol Vitals/Labs Vital Signs Date Time Temp Pulse Resp B/P (MAP) Pulse Ox O2 Delivery O2 Flow Rate FiO2 10/11/24 04:00 97.3 74 17 112/63 96 Room Air 21 10/10/24 19:20 2.0 Laboratory Tests 10/11/24 05:36 Medications Current Medications Cefazolin Sodium 2 gm STK-MED ONCE .ROUTE; Start 10/10/24 at 10:16; Stop 10/10/24 at 10:16; Status DC Lactated Ringer's 1,000 ml @ As Directed STK-MED ONCE IV; Start 10/10/24 at 10:16; Stop 10/10/24 at 10:16; Status DC Fentanyl Citrate 100 mcg STK-MED ONCE .ROUTE Last administered on 10/10/24at 12:29; Start 10/10/24 at 12:10; Stop 10/10/24 at 12:10; Status DC Acetaminophen 100 ml @ As Directed STK-MED ONCE .ROUTE Last administered on 10/10/24at 12:30; Start 10/10/24 at 12:10; Stop 10/10/24 at 12:11; Status DC Lidocaine HCl 100 mg STK-MED ONCE .ROUTE; Start 10/10/24 at 13:20; Stop 10/10/24 at 13:25; Status DC Rocuronium Perkins 50 mg STK-MED ONCE .ROUTE; Start 10/10/24 at 13:20; Stop 10/10/24 at 13:25; Status DC Propofol 200 mg STK-MED ONCE IV; Start 10/10/24 at 13:20; Stop 10/10/24 at 13:25; Status DC Fentanyl Citrate 100 mcg STK-MED ONCE .ROUTE; Start 10/10/24 at 13:21; Stop 10/10/24 at 13:25; Status DC Ropivacaine 150 mg STK-MED ONCE .ROUTE; Start 10/10/24 at 13:29; Stop 10/10/24 at 13:30; Status DC Ketamine HCl 50 mg STK-MED ONCE .ROUTE; Start 10/10/24 at 13:30; Stop 10/10/24 at 13:30; Status DC Ondansetron HCl 4 mg STK-MED ONCE .ROUTE; Start 10/10/24 at 13:50; Stop 10/10/24 at 13:50; Status DC Dexamethasone Sodium Phosphate 10 mg STK-MED ONCE .ROUTE; Start 10/10/24 at 13:50; Stop 10/10/24 at 13:50; Status DC Acetaminophen 100 ml @ As Directed STK-MED ONCE .ROUTE; Start 10/10/24 at 14:02; Stop 10/10/24 at 14:02; Status DC Famotidine 20 mg STK-MED ONCE IV; Start 10/10/24 at 14:02; Stop 10/10/24 at 14:02; Status DC Cefazolin Sodium 2 gm STK-MED ONCE IVPB Last administered on 10/10/24at 13:50; Start 10/10/24 at 13:50; Stop 10/10/24 at 14:36; Status DC Fentanyl Citrate 100 mcg STK-MED ONCE .ROUTE; Start 10/10/24 at 14:55; Stop 10/10/24 at 14:55; Status DC Fentanyl Citrate 100 mcg STK-MED ONCE .ROUTE Last administered on 10/10/24at 15:37; Start 10/10/24 at 15:31; Stop 10/10/24 at 15:32; Status DC Sodium Chloride 1,000 ml @ 100 mls/hr Q10H IV; Start 10/10/24 at 16:00; Stop 10/10/24 at 23:20; Status DC Polyethylene Glycol 17 gm DAILY PO; Start 10/11/24 at 09:00; Stop 11/10/24 at 08:59 Bisacodyl 10 mg DAILY PRN RC; Start 10/13/24 at 16:00; Stop 11/12/24 at 15:59 Ketorolac Tromethamine 15 mg Q6H PRN IV; Start 10/11/24 at 16:00; Stop 10/16/24 at 15:59 Ferrous Fumarate 324 mg DAILY PRN PO; Start 10/10/24 at 16:00; Stop 11/09/24 at 15:59 Ondansetron HCl 4 mg Q6H PRN IVP; Start 10/10/24 at 16:00; Stop 11/09/24 at 15:59 Calcium Carbonate 500 mg Q12H PRN PO; Start 10/10/24 at 16:00; Stop 11/09/24 at 15:59 Cefazolin Sodium 2 gm Q8H IVP; Start 10/10/24 at 21:00; Stop 10/10/24 at 15:54; Status DC Cyclobenzaprine HCl 5 mg Q8H PRN PO Last administered on 10/10/24at 17:48; Start 10/10/24 at 16:00; Stop 11/09/24 at 15:59 Aspirin 325 mg DAILY PO; Start 10/11/24 at 09:00; Stop 11/10/24 at 08:59 Ketorolac Tromethamine 15 mg Q8H IV Last administered on 10/11/24at 00:12; Start 10/10/24 at 16:00; Stop 10/11/24 at 08:01; Status DC Docusate Sodium 100 mg BID PO Last administered on 10/10/24at 20:56; Start 10/10/24 at 21:00; Stop 11/09/24 at 20:59 Potassium Chloride 100 ml @ 100 mls/hr AD PRN IV; Start 10/10/24 at 16:00; Stop 11/09/24 at 15:59 Potassium Chloride 20 meq AD PRN PO; Start 10/10/24 at 16:00; Stop 11/09/24 at 15:59 Potassium Chloride 20 meq AD PRN PO; Start 10/10/24 at 16:00; Stop 11/09/24 at 15:59 Tramadol HCl 50 mg Q6H PRN PO Last administered on 10/10/24at 19:11; Start 10/10/24 at 16:00; Stop 10/15/24 at 15:59 Carvedilol 3.125 mg BID PO Last administered on 10/10/24at 20:56; Start 10/10/24 at 21:00; Stop 11/09/24 at 20:59 Gabapentin 300 mg TID PO Last administered on 10/10/24at 20:57; Start 10/10/24 at 21:00; Stop 11/09/24 at 20:59 Sacubitril/ Valsartan 1 each BID PO Last administered on 10/10/24at 20:56; Start 10/10/24 at 21:00; Stop 11/09/24 at 20:59 Cefazolin Sodium 2 gm Q8H IVPB Last administered on 10/11/24at 05:03; Start 10/10/24 at 21:00; Stop 10/11/24 at 05:01; Status DC Acetaminophen/ Hydrocodone Bitart Q4H PRN PO Last administered on 10/10/24at 17:52; Start 10/10/24 at 18:00; Stop 10/15/24 at 17:59 ANGELICA COOK NP Oct 11, 2024 08:10
[2024-10-11] MEDS: ASPIRIN 325MG EC TAB PO SCH (08:46)
--- NOTE | 2024-10-11 11:30 | NUR ---
[facility] CM MET WITH PT THIS MORNING, INITIAL ASSESSMENT DONE. PATIENT IS INDEPENDENT PRIOR TO SURGERY, LIVES AT HOME WITH HER , DAUGHTER LIVES CLOSE BY. PATIENT HAS OWN CURRENT WORKING STANDARD WALKER, WHEELCHAIR, SHOWER CHAIR, CANE, BPM. DENIES ANY OTHER EQUIPMENT/SERVICES. FEELS SAFE TO GO BACK HOME, HAS NOT DRIVEN SINCE APRIL THIS YEAR, AND DAUGHTER ABLE TO ASSIST WITH TRANPSORTATION AND NEEDS NECESSARY. DISCUSSED MD RECOMMENDATIONS FOR HOME W/HH PT AGREEABLE, CONSENT SIGNED KEY FOR [facility]. [facility] HOME W/HH ONCE APPROVED. CM TO CONTINUE TO FOLLOW UP. Addendum: 10/11/24 at 1728 by VIKAS TATE LVN Amended: Links added.
[2024-10-11 12:00] VITALS: BP 141/51; PULSE 73; RESP 18; TEMP 98
[2024-10-11 16:00] VITALS: BP 136/69; PULSE 73; RESP 17; TEMP 97.9
[2024-10-11] MEDS: GABAPENTIN 300 MG CAPSULE PO SCH (16:06)
--- NOTE | 2024-10-11 17:00 | DS ---
Discharge Summary Hospital Course Summary: The patient was admitted to the hospital postoperatively on 10/10/2024 after undergoing right quadriceps tendon repair. They did well with routine postoperative pain control. They worked well with physical therapy. They developed some acute blood loss anemia but remained asymptomatic. The hospital course was otherwise uncomplicated. They were subsequently able to be discharged on postoperative day 1 once discharge arrangements were made with home health physical therapy. Assessment/Plan: ASSESSMENT: [ ] PLAN: [ ] Discharge Instructions: Begin working with physical therapy from home health. Knee immobilizer should be worn at all times other than showering. Weight-bearing as tolerated in the knee immobilizer. Dressing may be removed 10/12/2024 and left open to air. Showers ok allowing soap and water to run over the wound. Pat dry. Do not submerge wound in tub/pool. Do not apply ointments. Do not apply Betadine. Do not apply peroxide. Ice packs to decrease pain/swelling. Prescriptions have been sent to the pharmacy: *[place] 5/325mg 1-2 tab every 6 hours as needed for severe pain. (please call for refills) Cyclobenzaprine 5mg 1 tab every 8 hours as needed for muscle spasm pain. Gabapentin 100mg 1 tab every 8 hours (may discontinue if drowsy). Colace 100mg 1 tab orally twice a day as needed for constipation. Aspirin 325mg twice a day for 30 days to prevent blood clots. Follow up at [facility] on 11/01/2024 at 9:15 a.m. Home Medications: Reported Medications Docusate Sodium (Docusate Sodium) 100 Mg Capsule, 100 MG PO DAILY, CAP 10/06/24 Acetaminophen (Acetaminophen Extra Strength) 500 Mg Tablet, 500 MG PO Q4HPRN PRN for PAIN, TAB 10/06/24 Gabapentin (Gabapentin) 100 Mg Capsule, 300 MG PO TID, CAP 10/06/24 Sacubitril/Valsartan (Entresto 24 mg-26 mg Tablet) 24 Mg-26 Mg Tablet, 1 EACH PO BID, TAB 10/06/24 Carvedilol (Carvedilol) 3.125 Mg Tablet, 3.125 MG PO BID, TAB 09/12/24 Rosuvastatin Calcium (Rosuvastatin Calcium) 5 Mg Tablet, 5 MG PO AM, TAB 09/12/24 Discontinued Scripts Docusate Sodium (Colace) 100 Mg Capsule, 1 CAP PO BID for 30 Days, #60 CAP 0 Refills Prov:VANDANA LUCERO MD 09/16/24 Hydrocodone/Acetaminophen (Hydrocodon-Acetaminophen 5-325) 5 Mg-325 Mg Tablet, 1-2 TAB PO Q6HPRN PRN for SEVERE PAIN (7-10), #56 TAB 0 Refills Prov:VANDANA LUCERO MD 09/16/24 Gabapentin (Neurontin) 100 Mg Capsule, 100 MG PO TID, #90 CAP 0 Refills Prov:VANDANA LUCERO MD 09/16/24 Aspirin (Aspirin EC) 325 Mg Tablet., 325 MG PO DAILY, #30 TAB 0 Refills Prov:VANDANA LUCERO MD 09/16/24 VANDANA LUCERO MD Oct 11, 2024 17:00
[2024-10-11] MEDS ORDERED: ASPI-891 PO (17:03)
[2024-10-11] MEDS ORDERED: CYCL-309 PO (17:03)
[2024-10-11] MEDS ORDERED: DOCU-116 PO (17:03)
[2024-10-11] MEDS ORDERED: HYDR-4060 PO (17:03)
--- NOTE | 2024-10-11 19:14 | NUR ---
DISCHARGE CANCELLED, PATIENT REQUESTING TO STAY UNTIL TOMORROW, DR. LUCERO "OKAY"
[2024-10-11 19:20] VITALS: O2SAT 96
[2024-10-11 20:00] VITALS: BP 120/57; PULSE 78; RESP 17; TEMP 97.9
--- NOTE | 2024-10-11 21:00 | NUR ---
PATIENT REFUSED SHOWER AT THIS TIME,COMPLAINING OF FEELING TIRED AND IN PAIN, MEDICATED WITH PRN FLEXERIL, OFFERED BED BATH AND PATIENT ALSO REFUSED. DAUGHTER IS AT BEDSIDE. CALL PRECIADO AT REACH. BED TO LOWEST LEVEL. SAFETY PRECAUTIONS IN PLACE.
[2024-10-12] VITALS: BP 105/52; PULSE 59; RESP 17; TEMP 97.6
[2024-10-12 04:00] VITALS: BP 110/55; PULSE 70; RESP 17; TEMP 97.3
--- NOTE | 2024-10-12 06:32 | NUR ---
PATIENT REFUSED TO SIT UP TO CHAIR AT THIS TIME. ENCOURAGED TO SIT UP PER MD ORDERS. PATIENT CONTINUED TO REFUSE. DAUGHTER AT BEDSIDE.
[2024-10-12 08:00] VITALS: BP 113/57; PULSE 80; RESP 18; TEMP 97.6
[2024-10-12 09:56] VITALS: O2SAT 98
[2024-10-12 09:57] VITALS: BP 127/59
--- NOTE | 2024-10-12 12:15 | NUR ---
PATIENT REPORT CALLED REPORT TO [facility], SPOKE WITH RADHA BISWAS. REPORT GIVEN ALL QUESTIONS ANSWERED.
--- NOTE | 2024-10-12 12:48 | NUR ---
PATIENT DISCHARGED PATIENT DISCHARGED. PERIPHERAL IV REMOVED, CATHETER INTACT. DRESSING REMOVED, BRUISING NOTED TO SITE NO REDNESS NO DRAINAGE NOTED. PATIENT REPORTS PAIN 2/10 DENIES PAIN MEDICATION AT THIS TIME. REPORT CALLED TO [facility]. DISCHARGE PAPERWORK GIVEN, EDUCATION PROVIDED. PATIENT AWARE TO F/U WITH DR. LUCERO 11/01 AT 9:15 AM. ALL QUESTIONS ANSWERED. PATIENT TAKEN DOWN BY WHEELCHAIR.
--- NOTE | 2024-10-13 11:43 | HMCIMG ---
Intraoperative fluoroscopic assessment of the reattachment of right quadricep tendons of well sent. INDICATION: Avulsion of the right quadricep tendon COMPARISON: None available Fluoroscopy time: 1.4 minutes. FINDINGS: 6 images demonstrate patient undergoing reattachment of right quadricep tendon. Patient is status post right knee arthroplasty which appears to be in satisfactory position. IMPRESSION: Details of the finding in the operative notes.
== END 2024-10-12 13:00 | disposition home or self-care (01) ==
LOC: DAH 09:30 → DAHIP 09:31 → DAH 09:31 → 4DH 16:20
PROVIDERS: ADMIT Student in an Organized Health Care Education/Training Program; ATTEND Student in an Organized Health Care Education/Training Program
DX: S76.111A Strain of right quadriceps muscle, fascia and tendon, initial encounter (principal); G89.18 Other acute postprocedural pain; I10 Essential (primary) hypertension; I11.0 Hypertensive heart disease with heart failure; D62 Acute posthemorrhagic anemia; Z79.899 Other long term (current) drug therapy; Z98.890 Other specified postprocedural states
CPT/HCPCS: 82040; 80048 ×2; 85025; 85610; 85730; 84134; 86140; 36415 ×2; 93005; 87641; 27385; 96365; 96366 ×2; 96375; 64447; 73564; 97161 ×2; 96376; 85027; 97116 ×2; 97530 ×4; G0378 ×45; A4600; A4223 ×2; A6260; A4663; J7120; J3490 ×3; J3010 ×4; J1100; J2003; J2704; J2405; J2795; J1885 ×3; J0690 ×4; A4649; A4930 ×2; A6255; A5120; A4215; A4213; A4222; A4221; A4216; A6450